=== PATIENT | male | born 1965 | race Two or more races ===

== ENCOUNTER 2024-09-13 20:04 | Inpatient (IN) | payer BC, MEDICAID ==
[~2024-09-13] VITALS: Ht 185.4 cm; Wt 92.5 kg
[2024-09-13] MEDS: METRONIDAZOLE 500 MG PREMIX 100 ML IV ONE (20:50)
[2024-09-13] MEDS: SODIUM CHLORIDE 0.9% (SEPSIS BOLUS) IV ONE (20:50)
[2024-09-13] MEDS: KETOROLAC 30MG/ML VIAL IV STA (20:50)
[2024-09-13] MEDS: MORPHINE SULFATE 4 MG/ML INJ (FOR IV/IM USE) IV STA (20:50)
[2024-09-13] MEDS: ACETAMINOPHEN 650MG SUPP PR STA (20:51)
[2024-09-13 21:06] LABS: BASOPHILS % 0.4 % (0.0-2.0); EOSINOPHILS % 0.3 % (0.0-5.0); HEMATOCRIT. 40.8 % (42.0-52.0); HEMOGLOBIN. 13.2 g/dL (14.0-18.0); LYMPHOCYTES % 7.4 % (20.0-50.0); MEAN CORPUSCULAR HEMOGLOBIN 30.8 pg (28.0-32.0); MEAN CORPUSCULAR HGB CONC 32.3 g/dL (31.0-37.0); MEAN CORPUSCULAR VOLUME 95.4 fL (80.0-94.0); MEAN PLATELET VOLUME 8.7 fl (7.4-10.4); MONOCYTES % 7.6 % (2.0-8.0); NEUTROPHILS % 84.3 % (40.0-76.0); PLATELET 157 x1000/uL (130-400); RED BLOOD CELL COUNT 4.28 mill/uL (4.7-6.1); RED CELL DISTRIBUTION WIDTH 14.4 % (11.6-14.6); WHITE BLOOD COUNT 8.8 x1000/uL (4.5-11.0)
[2024-09-13 21:19] LABS: CHLORIDE 108 mEq/L (98-107); POTASSIUM 3.7 mEq/L (3.5-5.1); SODIUM 142 mEq/L (136-145)
[2024-09-13 21:20] LABS: CALCIUM 9.1 mg/dL (8.7-10.4); CARBON DIOXIDE 24 mEq/L (21-32)
[2024-09-13 21:21] LABS: INR 1.1; LACTIC ACID 3.1 mmol/L (0.4-2.0); PROTHROMBIN TIME 11.4 sec (9.6-11.0)
[2024-09-13 21:25] LABS: CREATININE 1.5 mg/dL (0.6-1.3); GLUCOSE 124 mg/dL (70-105); UREA NITROGEN BLOOD 26 mg/dL (9-23)
[2024-09-13 21:26] LABS: TROPONIN I HIGH SENSITIVITY 32 ng/L (3.0-53)
[2024-09-13 21:27] LABS: ALANINE AMINOTRANSFERASE 18 IU/L (10-49); ALBUMIN 3.9 g/dL (3.2-4.8); ASPARTATE AMINOTRANSFERASE 21 IU/L (<34); BILIRUBIN DIRECT 0.4 mg/dL (<=3.0); BILIRUBIN TOTAL 1.2 mg/dL (0.1-1.0)
[2024-09-13 21:28] LABS: PROTEIN TOTAL 6.3 g/dL (6.0-8.3)
[2024-09-13] MEDS: CEFTRIAXONE 1GM/50ML 50 ML IV ONE (22:06)
[2024-09-14 00:14] LABS: TROPONIN I HIGH SENSITIVITY 46 ng/L (3.0-53)
[2024-09-14 04:53] LABS: CLARITY URINE CLEAR (CLEAR); COLOR URINE YELLOW (YELLOW); GLUCOSE URINE NEGATIVE (NEGATIVE); KETONES URINE NEGATIVE (NEGATIVE); LEUKOCYTE ESTERASE URINE NEGATIVE (NEGATIVE); NITRITE URINE NEGATIVE (NEGATIVE); OCCULT BLOOD URINE NEGATIVE (NEGATIVE); PH URINE 5.5 (4.5-8.0); PROTEIN URINE NEGATIVE (NEGATIVE); SPECIFIC GRAVITY URINE 1.021 (1.005-1.030); UROBILINOGEN URINE 0.2 E.U./dL (0.2-1.0)
[2024-09-14 08:00] VITALS: BP 101/49; PULSE 81; RESP 18; TEMP 37.6; O2SAT 96
[2024-09-14 12:00] VITALS: BP 86/33; PULSE 76; RESP 20; TEMP 37.2; O2SAT 98
[2024-09-14] MEDS: PANTOPRAZOLE SODIUM 40 MG/VIAL IV SCH (13:30)
[2024-09-14] MEDS ORDERED: IPRATROPIUM/ALBUTEROL 0.5-3(2.5)MG/3ML NEB HHN PRN (13:30)
[2024-09-14] MEDS ORDERED: ACETAMINOPHEN 650MG/20.3ML UDC PO PRN (13:30)
[2024-09-14] MEDS: AZITHROMYCIN 500MG/250ML 250 ML IV SCH (15:00)
[2024-09-14] MEDS ORDERED: PRED5TAB MT (15:25)
[2024-09-14] MEDS ORDERED: TACR1CAP2 MT (15:29)
[2024-09-14] MEDS ORDERED: ALLO100T MT (15:30)
[2024-09-14] MEDS ORDERED: ATOR20TA65 MT (15:33)
[2024-09-14] MEDS ORDERED: CARV12.545 MT (15:35)
[2024-09-14] MEDS ORDERED: ASPI-1497 PO (15:37)
[2024-09-14] MEDS ORDERED: CALC0.253 MT (15:38)
[2024-09-14] MEDS ORDERED: MINO2.5T2 PO (15:39)
[2024-09-14] MEDS ORDERED: FERR325T6 PO (15:40)
[2024-09-14 16:00] VITALS: BP 111/61; PULSE 84; RESP 18; TEMP 37.2; O2SAT 96
[2024-09-14] MEDS: IPRATROPIUM/ALBUTEROL 0.5-3(2.5)MG/3ML NEB HHN SCH (17:21)
[2024-09-14 17:22] VITALS: PULSE 84; RESP 18
[2024-09-14] MEDS ORDERED: NALOXONE HCL 0.4MG/ML VIAL IV PRN (17:45)
[2024-09-14] MEDS: HYDROCODONE/ACETAMINOPHEN 5/325MG TABLET PO PRN (17:50)
[2024-09-14] MEDS ORDERED: OLME20TA68 PO (19:08)
[2024-09-14] MEDS ORDERED: MYCO500T PO (19:09)
[2024-09-14] MEDS ORDERED: CALC-476 PO (19:11)
[2024-09-14] MEDS ORDERED: MULT-1146 MT (19:12)
[2024-09-14] MEDS ORDERED: MAGN400T26 PO (19:13)
[2024-09-14 20:00] VITALS: BP 100/62; PULSE 75; RESP 14; TEMP 37.3; O2SAT 97
[2024-09-14 21:20] VITALS: PULSE 76; RESP 20
[2024-09-14] MEDS: CEFTRIAXONE 1GM/50ML 50 ML IV SCH (21:35)
[2024-09-15] VITALS (11 sets, daily range): BP systolic 107–136; BP diastolic 61–85; PULSE 62–77; RESP 15–20; TEMP 36.1–37.3; O2SAT 96–99
[2024-09-15] MEDS: MYCOPHENOLATE MOFETIL 500MG TABLET PO SCH (10:00)
[2024-09-15] MEDS: PREDNISONE 5MG TABLET PO SCH (10:01)
[2024-09-15] MEDS: TACROLIMUS 1MG CAPSULE PO SCH (12:02)
[2024-09-15] MEDS: SODIUM CHLORIDE 0.45% 1,000 ML IV SCH (12:09)
[2024-09-15 13:43] LABS: BASOPHILS % 0.3 % (0.0-2.0); EOSINOPHILS % 1.8 % (0.0-5.0); HEMATOCRIT. 32.2 % (42.0-52.0); HEMOGLOBIN. 10.1 g/dL (14.0-18.0); LYMPHOCYTES % 12.2 % (20.0-50.0); MEAN CORPUSCULAR HEMOGLOBIN 29.9 pg (28.0-32.0); MEAN CORPUSCULAR HGB CONC 31.3 g/dL (31.0-37.0); MEAN CORPUSCULAR VOLUME 95.6 fL (80.0-94.0); MEAN PLATELET VOLUME 8.6 fl (7.4-10.4); MONOCYTES % 9.3 % (2.0-8.0); NEUTROPHILS % 76.4 % (40.0-76.0); PLATELET 107 x1000/uL (130-400); RED BLOOD CELL COUNT 3.37 mill/uL (4.7-6.1); RED CELL DISTRIBUTION WIDTH 14.6 % (11.6-14.6); WHITE BLOOD COUNT 7.5 x1000/uL (4.5-11.0)
[2024-09-15 13:49] LABS: CHLORIDE 107 mEq/L (98-107); POTASSIUM 3.9 mEq/L (3.5-5.1); SODIUM 142 mEq/L (136-145)
[2024-09-15 13:50] LABS: CARBON DIOXIDE 24 mEq/L (21-32)
[2024-09-15 13:51] LABS: CALCIUM 8.1 mg/dL (8.7-10.4)
[2024-09-15 13:55] LABS: CREATININE 1.2 mg/dL (0.6-1.3)
[2024-09-15 13:56] LABS: GLUCOSE 167 mg/dL (70-105); UREA NITROGEN BLOOD 16 mg/dL (9-23)
[2024-09-15 13:58] LABS: CREATINE KINASE 164 IU/L (46-171)
[2024-09-15] MEDS: AZITHROMYCIN 500MG/250ML 250 ML IV SCH (14:15)
[2024-09-16] VITALS (10 sets, daily range): BP systolic 113–145; BP diastolic 51–88; PULSE 54–72; RESP 14–20; TEMP 36.3–37; O2SAT 95–99
[2024-09-16 06:11] LABS: CALCIUM 8.3 mg/dL (8.7-10.4); CARBON DIOXIDE 25 mEq/L (21-32); CHLORIDE 112 mEq/L (98-107); POTASSIUM 4.2 mEq/L (3.5-5.1); SODIUM 144 mEq/L (136-145)
[2024-09-16 06:15] LABS: CREATININE 1.3 mg/dL (0.6-1.3)
[2024-09-16 06:17] LABS: ALANINE AMINOTRANSFERASE 12 IU/L (10-49); ALBUMIN 3.3 g/dL (3.2-4.8); ASPARTATE AMINOTRANSFERASE 15 IU/L (<34); GLUCOSE 109 mg/dL (70-105)
[2024-09-16 06:18] LABS: BILIRUBIN DIRECT 0.3 mg/dL (<=3.0); UREA NITROGEN BLOOD 20 mg/dL (9-23)
[2024-09-16 06:19] LABS: PHOSPHORUS 2.2 mg/dL (2.5-4.9)
[2024-09-16 06:20] LABS: BILIRUBIN TOTAL 0.8 mg/dL (0.1-1.0); PROTEIN TOTAL 5.3 g/dL (6.0-8.3)
[2024-09-16 06:29] LABS: BASOPHILS % 0.4 % (0.0-2.0); EOSINOPHILS % 1.6 % (0.0-5.0); HEMATOCRIT. 32.4 % (42.0-52.0); HEMOGLOBIN. 10.5 g/dL (14.0-18.0); LYMPHOCYTES % 16.4 % (20.0-50.0); MEAN CORPUSCULAR HEMOGLOBIN 30.7 pg (28.0-32.0); MEAN CORPUSCULAR HGB CONC 32.5 g/dL (31.0-37.0); MEAN CORPUSCULAR VOLUME 94.4 fL (80.0-94.0); MEAN PLATELET VOLUME 8.7 fl (7.4-10.4); NEUTROPHILS % 72.6 % (40.0-76.0); PLATELET 118 x1000/uL (130-400); RED BLOOD CELL COUNT 3.44 mill/uL (4.7-6.1); RED CELL DISTRIBUTION WIDTH 14.1 % (11.6-14.6); WHITE BLOOD COUNT 7.7 x1000/uL (4.5-11.0)
[2024-09-16 06:31] LABS: PROTHROMBIN TIME 10.9 sec (9.6-11.0)
[2024-09-16] MEDS: MAGNESIUM 2 G PREMIX 50 ML IV NR (09:44)
[2024-09-16] MEDS: POTASSIUM PHOSPHATE 20 MMOL in DEXT 5% WATER 243.3333 ML IV NR (12:42)
[2024-09-16] MEDS: DOXYCYCLINE HYCLATE 100MG CAPSULE PO SCH (22:01)
[2024-09-16] MEDS ORDERED: CEFD300C3 MT (23:39)
[2024-09-16] MEDS ORDERED: DOXY100C5 MT (23:39)
[2024-09-17] VITALS (9 sets, daily range): BP systolic 138–155; BP diastolic 72–83; PULSE 62–84; RESP 16–19; TEMP 35.9–36.9; O2SAT 96–99
[2024-09-17 08:46] LABS: BASOPHILS % 0.6 % (0.0-2.0); EOSINOPHILS % 2.3 % (0.0-5.0); HEMATOCRIT. 31.9 % (42.0-52.0); HEMOGLOBIN. 10.5 g/dL (14.0-18.0); LYMPHOCYTES % 19.7 % (20.0-50.0); MEAN CORPUSCULAR HEMOGLOBIN 30.8 pg (28.0-32.0); MEAN CORPUSCULAR HGB CONC 32.8 g/dL (31.0-37.0); MEAN CORPUSCULAR VOLUME 93.9 fL (80.0-94.0); MEAN PLATELET VOLUME 8.3 fl (7.4-10.4); MONOCYTES % 9.4 % (2.0-8.0); PLATELET 125 x1000/uL (130-400); RED CELL DISTRIBUTION WIDTH 14.4 % (11.6-14.6); WHITE BLOOD COUNT 5.9 x1000/uL (4.5-11.0)
[2024-09-17 09:12] LABS: CHLORIDE 112 mEq/L (98-107); POTASSIUM 3.9 mEq/L (3.5-5.1); SODIUM 144 mEq/L (136-145)
[2024-09-17 09:13] LABS: CALCIUM 8.5 mg/dL (8.7-10.4); CARBON DIOXIDE 24 mEq/L (21-32)
[2024-09-17 09:18] LABS: CREATININE 1.1 mg/dL (0.6-1.3); GLUCOSE 102 mg/dL (70-105); UREA NITROGEN BLOOD 16 mg/dL (9-23)
[2024-09-17 09:20] LABS: PHOSPHORUS 2.7 mg/dL (2.5-4.9)
[2024-09-17] MEDS: MAGNESIUM GLUCONATE 500MG TABLET PO SCH (13:54)
== END 2024-09-17 17:30 | disposition home or self-care (01) | DRG 720 ==
LOC: ER 20:04 → 5WST 22:58 → EDBEDREQ 23:01 → EDBEDREQTM 23:01
PROVIDERS: ADMIT Internal Medicine; ATTEND Internal Medicine
DX: A41.9 Sepsis, unspecified organism (principal); D84.9 Immunodeficiency, unspecified; E87.20 Acidosis, unspecified; J18.9 Pneumonia, unspecified organism; I13.10 Hypertensive heart and chronic kidney disease without heart failure, with stage 1 through stage 4 chronic kidney disease, or unspecified chronic kidney disease; Z94.0 Kidney transplant status; D64.9 Anemia, unspecified; R65.20 Severe sepsis without septic shock; E78.5 Hyperlipidemia, unspecified; E78.00 Pure hypercholesterolemia, unspecified; R07.9 Chest pain, unspecified; K21.9 Gastro-esophageal reflux disease without esophagitis; N18.9 Chronic kidney disease, unspecified; Z96.659 Presence of unspecified artificial knee joint; R10.9 Unspecified abdominal pain; N28.89 Other specified disorders of kidney and ureter
CPT/HCPCS: 36415; 71045; 74176; 76770; 80048; 80076; 81003; 82550; 83605; 83735; 84100; 84145; 84484; 85025; 86850; 86900; 93005; 94070; 94640; 94664; 99291; A4606; C1893; J0456; J0696; J1885; J2270; J2470; J3475; J3490; J7030; J7060; J7507; J7512; J7517